=== PATIENT | male | born 1955 | race American Indian/Alaskan Native ===

== ENCOUNTER 2017-08-13 05:05 | Inpatient (IN) | payer BC ==
[2017-08-13 06:16] LABS: Bilirubin,Urine NEG (Negative); Blood,Urine NEG (Negative); Color,Urine Straw (Yellow); Mucus,Urine FEW /HPF; Protein,Urine <15 mg/dL mg/dL (Negative); Urobilinogen,Urine < 2.0 mg/dL (<2.0); WBC,Urine < 1.0 /HPF (0.0-6.0)
[2017-08-13 06:39] LABS: Creatine Kinase MB 1.3 ng/mL (0.0-4.0)
--- NOTE | 2017-08-13 06:39 | Emergency Department Report ---
ED Palpitations HPI - General Chief Complaint: Arrhythmia/Palpitations Stated Complaint: HEART PALPITATIONS Time Seen by Provider: 08/13/17 06:20 Source: EMS Mode of arrival: Stretcher Limitations: No Limitations - History of Present Illness MD Complaint: "skipped beats", palpitations, irregular heart beat -: Sudden, days(s) (1 day ago) Context: occured during rest Associated Symptoms: denies: chest pain, shortness of breath, syncope, near- syncope, nausea/vomiting, anxiety, diaphoresis, cough, parasthesias, feeling of impending doom, muscle cramps Treatments Prior to Arrival: other (oxygen) - Related Data Home Medications Medication Instructions Recorded Confirmed Last Taken Amoxicillin 500 mg PO Q8H 08/13/17 08/13/17 08/12/17 Aspirin [Aspirin EC] 500 mg PO BID PRN 08/13/17 08/13/17 Unknown HYDROcodone/APAP 7.5-325 [[place] 1 each PO Q6HR 08/13/17 08/13/17 08/12/17 7.5/325] Ibuprofen [Motrin] 800 mg PO Q6HR PRN MDD 3,200 mg 08/13/17 08/13/17 08/12/17 Allergies Allergy/AdvReac Type Severity Reaction Status Date / Time No Known Allergies Allergy Unverified 08/13/17 05:47 ED Review of Systems ROS: Stated complaint: HEART PALPITATIONS Other details as noted in HPI Constitutional: denies: chills, fever Eyes: denies: eye pain, eye discharge, vision change ENT: denies: ear pain, throat pain Respiratory: denies: cough, shortness of breath, wheezing Cardiovascular: denies: chest pain, palpitations Endocrine: no symptoms reported Gastrointestinal: denies: abdominal pain, nausea, diarrhea Genitourinary: denies: urgency, dysuria Musculoskeletal: denies: back pain, joint swelling, arthralgia Skin: denies: rash, lesions Neurological: denies: headache, weakness, paresthesias Psychiatric: denies: anxiety, depression Hematological/Lymphatic: denies: easy bleeding, easy bruising ED Past Medical Hx - Past Medical History Previous Medical History?: No - Surgical History Past Surgical History?: No - Family History Family history: hypertension - Social History Smoking Status: Never Smoker Substance Use Type: None - Medications Home Medications: Home Medications Medication Instructions Recorded Confirmed Last Taken Type Amoxicillin 500 mg PO Q8H 08/13/17 08/13/17 08/12/17 History Aspirin [Aspirin EC] 500 mg PO BID PRN 08/13/17 08/13/17 Unknown History HYDROcodone/APAP 7.5-325 [[place] 1 each PO Q6HR 08/13/17 08/13/17 08/12/17 History 7.5/325] Ibuprofen [Motrin] 800 mg PO Q6HR PRN MDD 3,200 mg 08/13/17 08/13/17 08/12/17 History ED Physical Exam - General Limitations: No Limitations General appearance: alert, in no apparent distress - Head Head exam: Present: atraumatic, normocephalic - Eye Eye exam: Present: normal appearance - ENT ENT exam: Present: mucous membranes moist - Neck Neck exam: Present: normal inspection - Respiratory Respiratory exam: Present: normal lung sounds bilaterally. Absent: respiratory distress - Cardiovascular Cardiovascular Exam: Present: regular rate, normal rhythm. Absent: systolic murmur, diastolic murmur, rubs, gallop - GI/Abdominal GI/Abdominal exam: Present: soft, normal bowel sounds - Rectal Rectal exam: Present: deferred - Extremities Exam Extremities exam: Present: normal inspection - Back Exam Back exam: Present: normal inspection - Neurological Exam Neurological exam: Present: alert, oriented X3 - Psychiatric Psychiatric exam: Present: normal affect, normal mood - Skin Skin exam: Present: warm, dry, intact, normal color. Absent: rash ED Course Vital Signs 08/13/17 08/13/17 08/13/17 05:29 05:30 05:41 Temperature 99.2 F Pulse Rate 71 81 81 Respiratory 18 18 22 Rate Blood Pressure 154/107 O2 Sat by Pulse 96 100 Oximetry 08/13/17 08/13/17 08/13/17 06:00 06:30 07:00 Temperature Pulse Rate 63 77 65 Respiratory 14 11 L 13 Rate Blood Pressure 146/98 154/107 152/101 O2 Sat by Pulse 99 99 100 Oximetry 08/13/17 08/13/17 08/13/17 07:30 08:00 08:30 Temperature Pulse Rate 56 L 52 L 90 Respiratory 14 16 15 Rate Blood Pressure 152/101 139/94 139/94 O2 Sat by Pulse 100 99 100 Oximetry 08/13/17 08/13/1708/13/18 09:00 09:30 10:00 Temperature Pulse Rate 53 L 80 63 Respiratory 14 14 16 Rate Blood Pressure 145/103 139/94 143/96 O2 Sat by Pulse 100 100 100 Oximetry 08/13/17 08/13/17 08/13/17 10:30 11:00 11:30 Temperature Pulse Rate 82 70 73 Respiratory 20 13 17 Rate Blood Pressure 143/96 145/87 145/87 O2 Sat by Pulse 95 100 99 Oximetry 08/13/17 08/13/17 12:00 12:30 Temperature Pulse Rate 63 58 L Respiratory 17 14 Rate Blood Pressure 144/98 144/98 O2 Sat by Pulse 98 100 Oximetry - Reevaluation(s) Reevaluation #1: Consult hospitalist for admission. Hospitalist to come see patient and take over care. Discussed plan of care with patient. And patient agreed to plan of care and admission. Discussed all results with patient 08/13/17 08:35 ED Medical Decision Making - Lab Data Result diagrams: 08/13/17 06:51 08/13/17 06:08 - EKG Data -: EKG Interpreted by Ms EKG shows normal: sinus rhythm Rate: normal - EKG Data Interpretation: other (old PVCs patient noted to be in ventricular bigeminy) - Medical Decision Making Patient is a 62-year-old male who presents to emergency room with palpitations found to have an arrhythmia and ventricular bigeminy. Patient admitted to the hospitalist service for further evaluation and treatment. - Differential Diagnosis electrolyte imbalance. Arrhythmia. Critical care attestation.: If time is entered above; I have spent that time in minutes in the direct care of this critically ill patient, excluding procedure time. ED Disposition Clinical Impression: Palpitations, Bigeminy Arrhythmia Qualifiers: Arrhythmia type: unspecified cardiac arrhythmia Qualified Code(s): I49.9 - Cardiac arrhythmia, unspecified Disposition: -09 OP ADMIT IP TO THIS HOSP Is pt being admited?: Yes Does the pt Need Aspirin: No Condition: Serious Time of Disposition: 08:36
[2017-08-13 06:40] LABS: Alanine Aminotransferase 13 units/L (7-56); Albumin 3.7 g/dL (3.9-5); BUN/Creatinine Ratio 16; Blood Urea Nitrogen 14 mg/dL (9-20); Calcium 8.6 mg/dL (8.4-10.2); Hemolysis Index 7
[2017-08-13 07:08] LABS: Hematocrit 40.4 % (35.5-45.6); Hemoglobin 14.1 gm/dl (11.8-15.2); Mean Corpuscular HGB Conc 35 % (32-34); Mean Corpuscular Hemoglobin 29 pg (28-32); Mean Corpuscular Volume 83 fl (84-94); Platelet Count 213 K/mm3 (140-440); Red Blood Count 4.85 M/mm3 (3.65-5.03); Red Cell Distribution Width 13.3 % (13.2-15.2)
--- NOTE | 2017-08-13 09:59 | History and Physical Report ---
History of Present Illness Date of examination: 08/13/17 Chief complaint: Palpitations History of present illness: 62-year-old -[place] male with no significant past medical history presented to the emergency department complaining of palpitations, fluttering of his head, irregular heartbeat. Patient said he has almost faint/dizziness 3 days ago. Patient denied chest pain, shortness of breath. Patient said he went to the dentist and was given Lortab, amoxicillin, and ibuprofen. Patient denies any complaints. REVIEW OF SYSTEMS: GENERAL: no weight change, no fatigue, no fever HEAD: no head ache EYES: no blurry vision, no acute visual loss EARS: no hearing loss, no discharge, no earache NOSE: no stuffiness, no sneezing, no discharge MOUTH, THROAT AND NECK: no bleeding gums, no sore throat, no swollen neck CARDIAC: As stated in the HPI. RESPIRATORY: no shortness of breath, no wheeze, no cough, no sputum, no hemoptysis, no asthma GI: no decreased appetite, no nausea, no vomiting, no dysphagia, no diarrhea, no constipation, no abdominal pain URINARY: no change in frequency, no urgency, no polyuria, no hematuria, no incontinence MUSCULOSKELETAL: no muscle weakness, no pain, no joint stiffness NEUROLOGIC: no loss of sensation/numbness, no tingling, no tremors, no weakness/ paralysis HEMATOLOGIC: no anemia, no easy bruising SKIN: no rashes ENDOCRINE: no heat/cold intolerance, no polyuria, no polydipsia, no thyroid problems, no diabetes PSYCHIATRIC: no anxiety, no depression, no suicidal ideations Past History Past Medical History: No medical history Past Surgical History: Other (left arm surgery) Social history: full code. denies: smoking, alcohol abuse, prescription drug abuse Family history: no significant family history Medications and Allergies Allergies Allergy/AdvReac Type Severity Reaction Status Date / Time No Known Allergies Allergy Unverified 08/13/17 05:47 Exam - Physical Exam Narrative exam: Not in cardiopulmonary distress. The patient appeared well nourished and normally developed. Vital signs as documented. Head exam is unremarkable. No scleral icterus . Neck is without jugular venous distension, thyromegaly, or carotid bruits. Lungs are clear to auscultation. Cardiac exam reveals irregular rate and Rhythm. Abdominal exam reveals normal bowel sounds, no masses, no organomegaly and no aortic enlargement. Extremities are nonedematous and both femoral and pedal pulses are normal. SUPERINTENDENT CIRCUS: Alert and oriented 3. No focal weakness. - Constitutional Vitals: Temp Pulse Resp BP Pulse Ox 99.2 F 90 15 139/94 100 08/13/17 05:41 08/13/17 08:30 08/13/17 08:30 08/13/17 08:30 08/13/17 08:30 Results - Labs CBC & Chem 7: 08/13/17 06:51 08/13/17 06:08 Labs: Laboratory Last Values WBC 7.0 K/mm3 (4.5-11.0) 08/13/17 06:51 RBC 4.85 M/mm3 (3.65-5.03) 08/13/17 06:51 Hgb 14.1 gm/dl (11.8-15.2) 08/13/17 06:51 Hct 40.4 % (35.5-45.6) 08/13/17 06:51 MCV 83 fl (84-94) L 08/13/17 06:51 MCH 29 pg (28-32) 08/13/17 06:51 MCHC 35 % (32-34) H 08/13/17 06:51 RDW 13.3 % (13.2-15.2) 08/13/17 06:51 Plt Count 213 K/mm3 (140-440) 08/13/17 06:51 Sodium 143 mmol/L (137-145) 08/13/17 06:08 Potassium 3.5 mmol/L (3.6-5.0) L 08/13/17 06:08 Chloride 103.7 mmol/L (98-107) 08/13/17 06:08 Carbon Dioxide 30 mmol/L (22-30) 08/13/17 06:08 Anion Gap 13 mmol/L 08/13/17 06:08 BUN 14 mg/dL (9-20) 08/13/17 06:08 Creatinine 0.9 mg/dL (0.8-1.5) 08/13/17 06:08 Estimated GFR > 60 ml/min 08/13/17 06:08 BUN/Creatinine Ratio 16 % 08/13/17 06:08 Glucose 112 mg/dL (75-100) H 08/13/17 06:08 Calcium 8.6 mg/dL (8.4-10.2) 08/13/17 06:08 Magnesium 2.30 mg/dL (1.7-2.3) 08/13/17 06:51 Total Bilirubin 0.20 mg/dL (0.1-1.2) 08/13/17 06:08 AST 16 units/L (5-40) 08/13/17 06:08 ALT 13 units/L (7-56) 08/13/17 06:08 Alkaline Phosphatase 81 units/L (35-129) 08/13/17 06:08 Total Creatine Kinase 152 units/L (55-170) 08/13/17 06:08 CK-MB (CK-2) 1.3 ng/mL (0.0-4.0) 08/13/17 06:08 CK-MB (CK-2) Rel Index 0.8 (0-4) 08/13/17 06:08 Troponin T < 0.010 ng/mL (0.00-0.029) 08/13/17 06:08 Total Protein 6.5 g/dL (6.3-8.2) 08/13/17 06:08 Albumin 3.7 g/dL (3.9-5) L 08/13/17 06:08 Albumin/Globulin Ratio 1.3 % 08/13/17 06:08 Urine Color Straw (Yellow) 08/13/17 06:00 Urine Turbidity Clear (Clear) 08/13/17 06:00 Urine pH 7.0 (5.0-7.0) 08/13/17 06:00 Ur Specific [place] 1.005 (1.003-1.030) 08/13/17 06:00 Urine Protein <15 mg/dl mg/dL (Negative) 08/13/17 06:00 Urine Glucose (UA) Neg mg/dL (Negative) 08/13/17 06:00 Urine Ketones Neg mg/dL (Negative) 08/13/17 06:00 Urine Blood Neg (Negative) 08/13/17 06:00 Urine Nitrite Neg (Negative) 08/13/17 06:00 Urine Bilirubin Neg (Negative) 08/13/17 06:00 Urine Urobilinogen < 2.0 mg/dL (<2.0) 08/13/17 06:00 Ur Leukocyte Esterase Neg (Negative) 08/13/17 06:00 Urine WBC (Auto) < 1.0 /HPF (0.0-6.0) 08/13/17 06:00 Urine RBC (Auto) 1.0 /HPF (0.0-6.0) 08/13/17 06:00 Urine Mucus Few /HPF 08/13/17 06:00 Assessment and Plan Assessment and plan: 62 year old -[place] male presented to the emergency department complaining of palpitations, irregular heart rate, and dizziness Palpitations EKG showed bradycardia, bigeminy and skipped beats Cardiology consulted Plan - Admit to telemetry - ? Possible D/C from the ED if cardiology cleared him. Advance Directives: Yes VTE prophylaxis?: Chemical Plan of care discussed with patient/family: Yes
[2017-08-13] MEDS ORDERED: SODIUM CHLORIDE FLUSH SYRINGE 10 ML IV PRN (10:04)
[2017-08-13] MEDS ORDERED: ZOFRAN IV PRN (10:04)
--- NOTE | 2017-08-13 10:17 | XRay Report ---
AP CHEST: HISTORY: Palpitations AP view of the chest demonstrates a normal mediastinal and cardiac contour with clear lungs and normal bony and soft tissue structures. IMPRESSION: Unremarkable AP chest.
--- NOTE | 2017-08-13 15:34 | Consultation ---
History of Present Illness Consult date: 08/13/17 Requesting physician: DAWSON TABARES Consult reason: other (bigeminy) History of present illness: The pt is a 62 YO male with no known significant past medical history. He is previously unknown to our practice. He presented with c/o progressively worsening palpitations since yesterday. He works for [employer] and was working yesterday when he noted the onset of his palpitations. The palpitations became mores frequent overnight and thus he decided to seek medical attention this AM. He denies any chest pain, SOB, n/v, diaphoresis, dizziness or syncope. He denies any prior cardiac issues. He denies any tobacco use, illicit drug use, or caffeine use. He recently had a tooth extracted and has been taking percocet , amoxicillin and ibuprofen for his tooth. Past History Past Medical History: No medical history Past Surgical History: Other (left elbow surgery many years ago) Social history: full code. denies: smoking, alcohol abuse, prescription drug abuse Family history: no significant family history Medications and Allergies Allergies Allergy/AdvReac Type Severity Reaction Status Date / Time No Known Allergies Allergy Unverified 08/13/17 05:47 Home Medications Medication Instructions Recorded Confirmed Last Taken Type Amoxicillin 500 mg PO Q8H 08/13/17 08/13/17 08/12/17 History Aspirin [Aspirin EC] 500 mg PO BID PRN 08/13/17 08/13/17 Unknown History HYDROcodone/APAP 7.5-325 [[place] 1 each PO Q6HR 08/13/17 08/13/17 08/12/17 History 7.5/325] Ibuprofen [Motrin] 800 mg PO Q6HR PRN MDD 3,200 mg 08/13/17 08/13/17 08/12/17 History Active Meds: Active Medications Acetaminophen (Tylenol) 650 mg PO Q4H PRN PRN Reason: Pain MILD(1-3)/Fever >100.5/CRAVEN Enoxaparin Sodium (Lovenox) 40 mg SUB-Q QDAY ELISABETH Ondansetron HCl (Zofran) 4 mg IV Q8H PRN PRN Reason: Nausea And Vomiting Sodium Chloride (Sodium Chloride Flush Syringe 10 Ml) 10 ml IV BID ELISABETH Sodium Chloride (Sodium Chloride Flush Syringe 10 Ml) 10 ml IV PRN PRN PRN Reason: LINE FLUSH Review of Systems All systems: negative Cardiovascular: palpitations, no chest pain, no orthopnea, no edema, no syncope , no lightheadedness, no shortness of breath, no dyspnea on exertion, no high blood pressure, no leg edema, no decreased exercise tolerance Physical Examination Vital Signs Pulse Resp 71 18 08/13/17 05:29 08/13/17 05:29 General appearance: no acute distress HEENT: Positive: PERRL, Normocephaly, Mucus Membranes Moist Neck: Positive: neck supple, trachea midline Cardiac: Positive: Regular Rate, S1/S2, Other (frequent PVCs) Lungs: Positive: clear to auscultation Neuro: Positive: Grossly Intact, Cranial Nerve 2-12 Intact Abdomen: Positive: Soft. Negative: Tender Skin: Positive: Clear. Negative: Rash, Wound Musculoskeletal: No Fluid Collection, No Pain, Normal Range of Motion Extremities: Absent: edema Results 08/13/17 06:51 08/13/17 06:08 Cardiac Enzymes 08/13/17 Range/Units 06:08 AST 16 (5-40) units/L CK-MB (CK-2) 1.3 (0.0-4.0) ng/mL CBC 08/13/17 Range/Units 06:51 WBC 7.0 (4.5-11.0) K/mm3 RBC 4.85 (3.65-5.03) M/mm3 Hgb 14.1 (11.8-15.2) gm/dl Hct 40.4 (35.5-45.6) % Plt Count 213 (140-440) K/mm3 Comprehensive Metabolic Panel 08/13/17 Range/Units 06:08 Sodium 143 (137-145) mmol/L Potassium 3.5 L (3.6-5.0) mmol/L Chloride 103.7 (98-107) mmol/L Carbon Dioxide 30 (22-30) mmol/L BUN 14 (9-20) mg/dL Creatinine 0.9 (0.8-1.5) mg/dL Glucose 112 H (75-100) mg/dL Calcium 8.6 (8.4-10.2) mg/dL AST 16 (5-40) units/L ALT 13 (7-56) units/L Alkaline Phosphatase 81 (35-129) units/L Total Protein 6.5 (6.3-8.2) g/dL Albumin 3.7 L (3.9-5) g/dL - Imaging and Cardiology Echo: pending EKG: report reviewed, image reviewed EKG interpretations - Telemetry EKG Rhythm: Sinus Rhythm - EKG Sinus rhythms and dysrhythmias: sinus rhythm Ventricular dysrhythmias: ventricular premature com Assessment and Plan Assessment: Frequent PVCs / bigeminy Borderline hypokalemia Plan: Obtain echo. Initiate lopressor. Replete K+. Cont telemetry. Assessment and plan reviewed with pt at bedside. The patient has been seen in conjunction with Dr. Moon who agrees with the assessment and plan of care.
[2017-08-13] MEDS: LOPRESSOR PO SCH ×2 (16:45→21:13)
[2017-08-13] MEDS ORDERED: K-DUR PO ONE (17:00)
[2017-08-13] MEDS: TYLENOL PO PRN (20:56)
[2017-08-13] MEDS: SODIUM CHLORIDE FLUSH SYRINGE 10 ML IV SCH (21:13)
[2017-08-14 07:05] LABS: BUN/Creatinine Ratio 13; Blood Urea Nitrogen 15 mg/dL (9-20); Calcium 8.4 mg/dL (8.4-10.2); Hemolysis Index 6
[2017-08-14] MEDS: TYLENOL PO PRN (09:06)
[2017-08-14 09:18] VITALS: BP 108/71
[2017-08-14] MEDS: LOPRESSOR PO SCH (09:21)
[2017-08-14] MEDS: SODIUM CHLORIDE FLUSH SYRINGE 10 ML IV SCH (09:56)
[2017-08-14] MEDS ORDERED: LOVENOX SUB-Q SCH (10:00)
[2017-08-14] MEDS ORDERED: LOPRESSOR PO SCH (11:36)
[2017-08-14] MEDS ORDERED: MILK OF MAGNESIA PO PRN (11:54)
--- NOTE | 2017-08-14 14:34 | Progress Note ---
Assessment and Plan Assessment: Frequent PVCs / bigeminy - improving Borderline hypokalemia - repleted Plan: Echo reviewed - EF 55-60%, RV mildly dilated, RA mildly dilated, mild TR, mild pulm HTN with RVSP 34mmHg, moderate dilatation of the ascending aorta. Recommend annual echocardiogram for monitoring of ascending aorta dilatation. Decrease lopressor to 12.5mg BID in setting of sinus bradycardia noted overnight. Currently stable cardiac status. Pt may discharge home from cardiology standpoint. Recommend follow up in our office with Dr. Moon within 2 weeks of hospital discharge ([phone]). Pt to call and make his own appt. Assessment and plan reviewed with pt at bedside. The patient has been seen in conjunction with Dr. Negron who agrees with the assessment and plan of care. Subjective Date of service: 08/14/17 Principal diagnosis: PVCs Interval history: Pt resting comfortably in bed, no current cardiac complaints. telemetry reviewed - pt noted to have less frequent PVCs overnight, pt also noted to have sinus bradycardia with HR as low as 30s overnight, BPs stable. Objective Last Vital Signs Temp 97.5 F L 08/14/17 07:59 Pulse 35 L 08/14/17 10:00 Resp 16 08/14/17 10:00 BP 108/71 08/14/17 07:59 Pulse Ox 96 08/14/17 10:00 - Physical Examination General: No Apparent Distress HEENT: Positive: PERRL, Normocephaly, Mucus Membranes Moist Neck: Positive: neck supple, trachea midline Cardiac: Positive: Reg Rate and Rhythm, S1/S2 Lungs: Positive: clear to auscultation Neuro: Positive: Grossly Intact, Cranial Nerve 2-12 Intact Abdomen: Positive: Soft. Negative: Tender Skin: Positive: Clear. Negative: Rash, Wound Musculoskeletal: No Fluid Collection, No Pain, Normal Range of Motion Extremities: Absent: edema - Labs and Meds Comprehensive Metabolic Panel 08/14/17 Range/Units 06:01 Sodium 140 (137-145) mmol/L Potassium 4.2 (3.6-5.0) mmol/L Chloride 100.9 (98-107) mmol/L Carbon Dioxide 29 (22-30) mmol/L BUN 15 (9-20) mg/dL Creatinine 1.2 (0.8-1.5) mg/dL Glucose 88 (75-100) mg/dL Calcium 8.4 (8.4-10.2) mg/dL - Imaging and Cardiology EKG: report reviewed, image reviewed Echo: pending - Telemetry EKG Rhythm: Sinus Rhythm - EKG Sinus rhythms and dysrhythmias: sinus rhythm Ventricular dysrhythmias: ventricular premature com
--- NOTE | 2017-08-14 14:40 | Discharge Summary ---
Providers - Providers Date of Admission: 08/13/17 10:04 Date of discharge: 08/14/17 Attending physician: DAWSON TABARES MD 08/13/17 09:50 Consult to Cardiology [CONS] Urgent Consulting Provider: ROMARIO BANGURA Reason For Exam: Bigemeny/Arryht 08/13/17 10:36 Consult to Physician [CONS] Urgent Comment: Consulting Provider: ROMARIO BANGURA Physician Instructions: Reason For Exam: Bigemeny/arrhythmia Primary care physician: FISH CONSERVATIONIST Hospitalization Reason for admission: cardiac arrhythmia, Bigeminy Condition: Serious Pertinent studies: Echo ejection fraction of 55-60% Hospital course: 62-year-old -[place] male with no significant past medical history presented to the emergency department complaining of palpitations, fluttering of his head, irregular heartbeat. Patient said he has almost faint/dizziness 3 days ago. Patient denied chest pain, shortness of breath. Patient said he went to the dentist and was given Lortab, amoxicillin, and ibuprofen. Patient denies any complaints. Patient was admitted to the floor and cardiology was consulted, echo was done which showed EF of 55-60%. Patient didn't have any symptoms after admission. patient was on the monitor and no arrhytmia was identified. Cardiology recommend to discharge him with lepressor 12.5 mg BID. Patient was hemodynamically stable at the time of discharge. Patient advised to have follow up with [facility] as an O/P. Disposition: DC-01 TO HOME OR SELFCARE Time spent for discharge: 31 minutes - Discharge Diagnoses (1) Arrhythmia Status: Acute Qualifiers: Arrhythmia type: unspecified cardiac arrhythmia Qualified Code(s): I49.9 - Cardiac arrhythmia, unspecified (2) Bigeminy Status: Acute (3) Palpitations Status: Acute Core Measure Documentation - Palliative Care Palliative Care/ Comfort Measures: Not Applicable - Core Measures Any of the following diagnoses?: none Exam - Physical Exam Narrative exam: Not in cardiopulmonary distress. The patient appeared well nourished and normally developed. Vital signs as documented. Head exam is unremarkable. No scleral icterus . Neck is without jugular venous distension, thyromegaly, or carotid bruits. Lungs are clear to auscultation. Cardiac exam reveals irregular rate and Rhythm. Abdominal exam reveals normal bowel sounds, no masses, no organomegaly and no aortic enlargement. Extremities are nonedematous and both femoral and pedal pulses are normal. RENAL DIETITIAN: Alert and oriented 3. No focal weakness. - Constitutional Vitals: Temp Pulse Resp BP Pulse Ox 97.5 F L 35 L 16 108/71 96 08/14/17 07:59 08/14/17 10:00 08/14/17 10:00 08/14/17 07:59 08/14/17 10:00 Plan Activity: no restrictions Weight Bearing Status: Full Weight Bearing Diet: low cholesterol, low salt Follow up with: PRIMARY CARE, [Primary Care Provider] - 7 Days PREETHI POLLOCK MD [Staff Physician] - 14 Days Prescriptions: Metoprolol [Lopressor TAB] 12.5 mg PO BID #60 tablet
== END 2017-08-14 16:52 | disposition home or self-care (01) | DRG 310 ==
LOC: ED 05:05 → 4A 10:04
PROVIDERS: ADMIT Internal Medicine; ATTEND Internal Medicine
DX: I49.3 Ventricular premature depolarization (principal); R42 Dizziness and giddiness; I49.9 Cardiac arrhythmia, unspecified; Z79.82 Long term (current) use of aspirin; Z82.49 Family history of ischemic heart disease and other diseases of the circulatory system; I27.20 Pulmonary hypertension, unspecified
CPT/HCPCS: 36415; 71045; 80048; 80053; 81001; 82550; 82553; 83735; 84443; 84484; 85027; 93005; 93010; 93306; J1650; J2405

== ENCOUNTER 2017-08-15 21:47 | Inpatient (IN) | payer BC ==
[2017-08-15] MEDS ORDERED: ASPIRIN PO ONE (21:57)
[2017-08-15] MEDS ORDERED: CORDARONE 150 MG in D5W 100 ML IV ONE (22:37)
[2017-08-15] MEDS ORDERED: CORDARONE IV ONE (22:38)
--- NOTE | 2017-08-15 22:47 | Emergency Department Report ---
ED Palpitations HPI - General Chief Complaint: Arrhythmia/Palpitations Stated Complaint: CHEST PAIN Time Seen by Provider: 08/15/17 22:34 Source: patient, old records reviewed Mode of arrival: Ambulatory Limitations: No Limitations - History of Present Illness Initial Comments: 62-year-old male with a past medical history of recently diagnosed bigeminy presents for complaints of palpitations, lightheadedness, generalized weakness that restarted today. Patient was admitted here August 13 until the for similar symptoms. EKG revealed bigeminy. Patient had echocardiogram showing an normal EF and was started on Lopressor 12.5 mg twice a day and had sinus bradycardia and bigeminy during admission. Patient did not receive a stress test. Patient took his first dose of prescribed Lopressor 12.5 mg this morning. Initial EKG in the ED shows episodes of nonsustained V. tach - Related Data Home Medications Medication Instructions Recorded Confirmed Last Taken Amoxicillin 500 mg PO Q8H 08/13/17 08/13/17 08/12/17 Aspirin [Aspirin EC] 500 mg PO BID PRN 08/13/17 08/13/17 Unknown HYDROcodone/APAP 7.5-325 [[place] 1 each PO Q6HR 08/13/17 08/13/17 08/12/17 7.5-325 mg TAB] Ibuprofen [Motrin 800 MG tab] 800 mg PO Q6HR PRN MDD 3,200 mg 08/13/17 08/13/17 08/12/17 Previous Rx's Medication Instructions Recorded Last Taken Type Metoprolol [Lopressor TAB] 12.5 mg PO BID #60 tablet 08/14/17 Unknown Rx Allergies Allergy/AdvReac Type Severity Reaction Status Date / Time No Known Allergies Allergy Verified 08/15/17 21:50 ED Review of Systems ROS: Stated complaint: CHEST PAIN Other details as noted in HPI Comment: All other systems reviewed and negative ED Past Medical Hx - Past Medical History Hx Congestive Heart Failure: No Hx Diabetes: No Hx Asthma: No Hx COPD: No - Surgical History Past Surgical History?: No - Social History Smoking Status: Never Smoker Substance Use Type: None - Medications Home Medications: Home Medications Medication Instructions Recorded Confirmed Last Taken Type Amoxicillin 500 mg PO Q8H 08/13/17 08/13/17 08/12/17 History Aspirin [Aspirin EC] 500 mg PO BID PRN 08/13/17 08/13/17 Unknown History HYDROcodone/APAP 7.5-325 [[place] 1 each PO Q6HR 08/13/17 08/13/17 08/12/17 History 7.5-325 mg TAB] Ibuprofen [Motrin 800 MG tab] 800 mg PO Q6HR PRN MDD 3,200 mg 08/13/17 08/13/17 08/12/17 History Metoprolol [Lopressor TAB] 12.5 mg PO BID #60 tablet 08/14/17 Unknown Rx ED Physical Exam - General Limitations: No Limitations - Other Other exam information: General: No limitations, patient is alert in no acute distress Head exam: Atraumatic, normocephalic Eyes exam: Normal appearance, pupils equal reactive to light, extraocular movements intact ENT: Moist mucous membrane, normal oropharynx Neck exam: Normal inspection, full range of motion, no meningismus nontender Respiratory exam: Clear to auscultation bilateral, no wheezes, rales, crackles Cardiovascular: Intermittent palpitations and irregular Abdomen: Soft, nondistended, and nontender, with normal bowel sounds, no rebound, or guarding Extremity: Full range of motion normal inspection no deformity, no calf tenderness or edema Back: Normal Inspection, full range of motion, no tenderness Neurologic: Alert, oriented x3, cranial nerves intact, no motor or sensory deficit Psychiatric: normal affect, normal mood Skin: Warm, dry, intact ED Course Vital Signs 08/15/17 21:50 Temperature 97.5 F L Pulse Rate 43 L Respiratory 16 Rate Blood Pressure 112/95 O2 Sat by Pulse 98 Oximetry - Reevaluation(s) Reevaluation #1: 08/15/17 23:08 Initial amiodarone bolus seemed to help nonsustained V. tach episodes and patient is now consistently in bigeminy. Amiodarone drip in progress - Consultations Consultation #1: 08/15/17 22:[address] 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 Recommends amiodarone bolus followed by drip and Lexiscan in the morning ED Medical Decision Making - Lab Data Result diagrams: 08/15/17 10:33 08/15/17 10:33 Lab Results 08/15/17 08/15/17 08/15/17 Range/Units 10:33 10:33 10:33 WBC 8.4 (4.5-11.0) K/mm3 RBC 4.72 (3.65-5.03) M/mm3 Hgb 13.5 (11.8-15.2) gm/dl Hct 39.9 (35.5-45.6) % MCV 85 (84-94) fl MCH 29 (28-32) pg MCHC 34 (32-34) % RDW 13.7 (13.2-15.2) % Plt Count 220 (140-440) K/mm3 Lymph % (Auto) 44.6 H (13.4-35.0) % [place] % (Auto) 10.0 H (0.0-7.3) % Eos % (Auto) 4.8 H (0.0-4.3) % Baso % (Auto) 0.8 (0.0-1.8) % Lymph # 3.7 (1.2-5.4) K/mm3 [place] # 0.9 H (0.0-0.8) K/mm3 Eos # 0.4 (0.0-0.4) K/mm3 Baso # 0.1 (0.0-0.1) K/mm3 Add Manual Diff Complete Seg Neutrophils % 39.4 L (40.0-70.0) % Seg Neutrophils # 3.3 (1.8-7.7) K/mm3 PT 13.2 (12.2-14.9) Sec. INR 0.95 (0.87-1.13) Sodium 139 (137-145) mmol/L Potassium 4.1 (3.6-5.0) mmol/L Chloride 101.0 (98-107) mmol/L Carbon Dioxide 30 (22-30) mmol/L Anion Gap 12 mmol/L BUN 15 (9-20) mg/dL Creatinine 1.3 (0.8-1.5) mg/dL Estimated GFR > 60 ml/min BUN/Creatinine Ratio 12 % Glucose 97 (75-100) mg/dL Calcium 8.5 (8.4-10.2) mg/dL Magnesium (1.7-2.3) mg/dL Troponin T < 0.010 (0.00-0.029) ng/mL 08/15/17 Range/Units 10:33 WBC (4.5-11.0) K/mm3 RBC (3.65-5.03) M/mm3 Hgb (11.8-15.2) gm/dl Hct (35.5-45.6) % MCV (84-94) fl MCH (28-32) pg MCHC (32-34) % RDW (13.2-15.2) % Plt Count (140-440) K/mm3 Lymph % (Auto) (13.4-35.0) % [place] % (Auto) (0.0-7.3) % Eos % (Auto) (0.0-4.3) % Baso % (Auto) (0.0-1.8) % Lymph # (1.2-5.4) K/mm3 [place] # (0.0-0.8) K/mm3 Eos # (0.0-0.4) K/mm3 Baso # (0.0-0.1) K/mm3 Add Manual Diff Seg Neutrophils % (40.0-70.0) % Seg Neutrophils # (1.8-7.7) K/mm3 PT (12.2-14.9) Sec. INR (0.87-1.13) Sodium (137-145) mmol/L Potassium (3.6-5.0) mmol/L Chloride (98-107) mmol/L Carbon Dioxide (22-30) mmol/L Anion Gap mmol/L BUN (9-20) mg/dL Creatinine (0.8-1.5) mg/dL Estimated GFR ml/min BUN/Creatinine Ratio % Glucose (75-100) mg/dL Calcium (8.4-10.2) mg/dL Magnesium 2.30 (1.7-2.3) mg/dL Troponin T (0.00-0.029) ng/mL - EKG Data -: EKG Interpreted by Or EKG shows normal: sinus rhythm (nonsustained vtach episodes), axis (qrs 23), intervals (qtc 335), QRS complexes (qrsd 90), ST-T waves (no stemi/t inv) - EKG Data When compared to previous EKG there are: changes noted (bigemeny peviously) - Medical Decision Making Nonsustained V. tach, multiple recurrent episodes prior to amiodarone Improved with amiodarone bolus and drip and progress Cardiac enzymes and electrolytes unremarkable Underlying bigeminy persists Cardiology has been consulted Recommended Lexiscan stress test in the a.m. - Differential Diagnosis arrhythmia, electrolyte abnormality, IN Critical Care Time: No Critical care attestation.: If time is entered above; I have spent that time in minutes in the direct care of this critically ill patient, excluding procedure time. ED Disposition Clinical Impression: NSVT (nonsustained ventricular tachycardia), Bigeminy, Palpitations Disposition: OP ADMIT IP TO THIS HOSP Is pt being admited?: Yes Condition: Stable Referrals: PRIMARY CARE, [Primary Care Provider] - 3-5 Days Time of Disposition: 23:11 (Dr Garcia/hosp)
[2017-08-15 22:55] LABS: INR 0.95 (0.87-1.13)
[2017-08-15] MEDS: CORDARONE 900 MG in D5W 482 ML IV SCH (22:58)
[2017-08-15 22:59] LABS: BUN/Creatinine Ratio 12; Blood Urea Nitrogen 15 mg/dL (9-20); Calcium 8.5 mg/dL (8.4-10.2); Hemolysis Index 9
[2017-08-15 23:04] LABS: Hematocrit 39.9 % (35.5-45.6); Hemoglobin 13.5 gm/dl (11.8-15.2); Lymphocytes % (Auto) 44.6 % (13.4-35.0); Mean Corpuscular HGB Conc 34 % (32-34); Mean Corpuscular Hemoglobin 29 pg (28-32); Mean Corpuscular Volume 85 fl (84-94); Platelet Count 220 K/mm3 (140-440); Red Blood Count 4.72 M/mm3 (3.65-5.03); Red Cell Distribution Width 13.7 % (13.2-15.2)
[2017-08-15 23:05] LABS: Basophils # (Auto) 0.1 K/mm3 (0.0-0.1); Basophils % (Auto) 0.8 % (0.0-1.8); Eosinophils # (Auto) 0.4 K/mm3 (0.0-0.4); Eosinophils % (Auto) 4.8 % (0.0-4.3); Lymphocytes # (Auto) 3.7 K/mm3 (1.2-5.4); Monocytes # (Auto) 0.9 K/mm3 (0.0-0.8)
[2017-08-15] MEDS ORDERED: SODIUM CHLORIDE FLUSH SYRINGE 10 ML IV PRN (23:31)
[2017-08-15] MEDS ORDERED: ZOFRAN IV PRN (23:31)
--- NOTE | 2017-08-15 23:37 | History and Physical Report ---
History of Present Illness Date of examination: 08/15/17 History of present illness: 62-year-old man with no medical history was admitted for evaluation of his bigeminy and discharged yesterday. Patient was instructed to take Lopressor 12.5 twice a day. He took the morning dose, she did not take the evening dose because his pulse was between 47 to low 50s. Stated that this evening he started experiencing fluttering and skipped beats A's chest. Patient had episodes of nonsustained V. tach in the emergency room and was started on amiodarone drip Review of systems Constitutional: no weight loss, chills Ears, eyes, nose, mouth and throat: no nasal congestion, no nasal discharge, no sinus pressure, no vision change, no red eye. Neck: No neck pain or rigidity. Cardiovascular: no chest pain Respiratory: No cough, shortness of breath Gastrointestinal: no abdominal pain, hematochezia Genitourinary : no dysuria, frequency , no hematuria Musculoskeletal: no joint swelling or muscle ache Integumentary: no rash, no pruritis Neurological: no parathesias, no numbness, no focal weakness Endocrine: no cold or heat intolerance, no polyuria or polydipsia Hematologic/Lymphatic: no easy bruising, no easy bleeding, no gland swelling Allergic/Immunologic: no urticaria, no angioedema. PAST MEDICAL HISTORY: none PAST SURGICAL HISTORY: Left arm SOCIAL HISTORY: Denies alcohol, tobacco, drugs FAMILY HISTORY: Hypertension Medications and Allergies Allergies Allergy/AdvReac Type Severity Reaction Status Date / Time No Known Allergies Allergy Verified 08/15/17 21:50 Home Medications Medication Instructions Recorded Confirmed Last Taken Type Amoxicillin 500 mg PO Q8H 08/13/17 08/13/17 08/12/17 History Aspirin [Aspirin EC] 500 mg PO BID PRN 08/13/17 08/13/17 Unknown History HYDROcodone/APAP 7.5-325 [[place] 1 each PO Q6HR 08/13/17 08/13/17 08/12/17 History 7.5-325 mg TAB] Ibuprofen [Motrin 800 MG tab] 800 mg PO Q6HR PRN MDD 3,200 mg 08/13/17 08/13/17 08/12/17 History Metoprolol [Lopressor TAB] 12.5 mg PO BID #60 tablet 08/14/17 Unknown Rx Active Meds: Active Medications Acetaminophen (Tylenol) 650 mg PO Q4H PRN PRN Reason: Pain MILD(1-3)/Fever >100.5/CRAVEN Enoxaparin Sodium (Lovenox) 30 mg SUB-Q QDAY ELISABETH Amiodarone HCl 900 mg/ (Dextrose) 500 mls @ 33.33 mls/hr IV DIRECT ELISABETH; Protocol Last Admin: 08/15/17 22:58 Dose: 1 mg/min, 33.33 mls/hr Ondansetron HCl (Zofran) 4 mg IV Q8H PRN PRN Reason: Nausea And Vomiting Oxycodone/Acetaminophen (Percocet 5/325) 1 tab PO Q6H PRN PRN Reason: Pain, Moderate (4-6) Sodium Chloride (Sodium Chloride Flush Syringe 10 Ml) 10 ml IV BID ELISABETH Sodium Chloride (Sodium Chloride Flush Syringe 10 Ml) 10 ml IV PRN PRN PRN Reason: LINE FLUSH Exam - Physical Exam Narrative exam: Gen. appearance: Patient lying in bed, no apparent distress HEENT: Normocephalic, atraumatic, pupils equally round and reactive to light, extraocular movement intact, and no sclericterus,. No JVD or thyromegaly or nodule,neck supple, no carotid bruit ,mucous membranes moist, no exudate or erythema Heart: S1, S2, regular rate and rhythm Lungs: Clear to auscultation bilaterally, breathing comfortable Abdomen: Positive bowel sounds, nontender, nondistended, no organomegaly Extremity: No edema, cyanosis, clubbing Skin: No rash, nodules, warm, dry Neuro: Oriented 3, cranial nerves II-12 intact, speech is fluent, motor and sensory intact - Constitutional Vitals: Temp Pulse Resp BP Pulse Ox 97.5 F L 43 L 16 112/95 98 08/15/17 21:50 08/15/17 21:50 08/15/17 21:50 08/15/17 21:50 08/15/17 21:50 Results - Labs CBC & Chem 7: 08/15/17 10:33 08/15/17 10:33 Labs: Abnormal lab results 08/15/17 Range/Units 10:33 Lymph % (Auto) 44.6 H (13.4-35.0) % [place] % (Auto) 10.0 H (0.0-7.3) % Eos % (Auto) 4.8 H (0.0-4.3) % [place] # 0.9 H (0.0-0.8) K/mm3 Seg Neutrophils % 39.4 L (40.0-70.0) % - Imaging and Cardiology EKG: image reviewed Assessment and Plan Assessment Nonsustained V. tach Bigeminy Plan Continue amiodarone drip Check cardiac enzymes, stress test consult cardiology, critical care DVT prophylaxis
[2017-08-16 00:10] LABS: Creatine Kinase MB < 1.0 ng/mL (0.0-4.0)
[2017-08-16] MEDS ORDERED: CORDARONE 150 MG in D5W 100 ML IV ONE (00:26)
[2017-08-16] MEDS ORDERED: CORDARONE IV ONE (00:26)
[2017-08-16 04:18] LABS: BUN/Creatinine Ratio 13; Blood Urea Nitrogen 15 mg/dL (9-20); Calcium 8.4 mg/dL (8.4-10.2); Hemolysis Index 11
[2017-08-16 07:23] LABS: Basophils % (Auto) 0.6 % (0.0-1.8); Eosinophils % (Auto) 3.9 % (0.0-4.3); Hematocrit 38.8 % (35.5-45.6); Hemoglobin 12.9 gm/dl (11.8-15.2); Lymphocytes % (Auto) 38.6 % (13.4-35.0); Mean Corpuscular HGB Conc 33 % (32-34); Mean Corpuscular Hemoglobin 28 pg (28-32); Mean Corpuscular Volume 85 fl (84-94); Mean Platelet Volume 8.3 fl (6-12); Monocytes % (Auto) 10.6 % (0.0-7.3); Platelet Count 202 K/mm3 (140-440); Red Blood Count 4.57 M/mm3 (3.65-5.03); Red Cell Distribution Width 13.6 % (13.2-15.2)
[2017-08-16 07:24] LABS: Eosinophils # (Auto) 0.3 K/mm3 (0.0-0.4); Lymphocytes # (Auto) 3.1 K/mm3 (1.2-5.4); Monocytes # (Auto) 0.9 K/mm3 (0.0-0.8)
[2017-08-16 07:40] LABS: Creatine Kinase MB < 1.0 ng/mL (0.0-4.0)
[2017-08-16] MEDS ORDERED: LEXISCAN IV ONE ×2 (08:24→08:28)
[2017-08-16] MEDS: SODIUM CHLORIDE FLUSH SYRINGE 10 ML IV SCH ×2 (09:53→22:02)
[2017-08-16] MEDS: LOVENOX SUB-Q SCH (09:53)
[2017-08-16] MEDS ORDERED: LOVENOX SUB-Q SCH (10:00)
--- NOTE | 2017-08-16 13:27 | Consultation ---
History of Present Illness Consult date: 08/16/17 Requesting physician: OZZIE TREVIZO Consult reason: arrhythmia History of present illness: Assessment last week with palpitations and was noted to have frequent PVCs on the monitor. Echocardiogram showed an ejection fraction of 55-60 percent. He was subsequently discharged on metoprolol 12.5 mg twice a day. He took the first dose of metoprolol yesterday morning., He started experiencing palpitations with some lightheadedness. He presented back to the emergency department. In the ER, he was noted to have frequent and often long runs of nonsustained ventricular tachycardia. As such, he was placed on IV amiodarone drip. He denies chest pain. Past History Past Medical History: No medical history Past Surgical History: Other (left elbow surgery) Social history: (has 5 children). denies: smoking, alcohol abuse Family history: no significant family history Medications and Allergies Allergies Allergy/AdvReac Type Severity Reaction Status Date / Time No Known Allergies Allergy Verified 08/15/17 21:50 Home Medications Medication Instructions Recorded Confirmed Last Taken Type Amoxicillin 500 mg PO Q8H 08/13/17 08/13/17 08/12/17 History Aspirin [Aspirin EC] 500 mg PO BID PRN 08/13/17 08/13/17 Unknown History HYDROcodone/APAP 7.5-325 [[place] 1 each PO Q6HR 08/13/17 08/13/17 08/12/17 History 7.5-325 mg TAB] Ibuprofen [Motrin 800 MG tab] 800 mg PO Q6HR PRN MDD 3,200 mg 08/13/17 08/13/17 08/12/17 History Metoprolol [Lopressor TAB] 12.5 mg PO BID #60 tablet 08/14/17 Unknown Rx Active Meds: Active Medications Acetaminophen (Tylenol) 650 mg PO Q4H PRN PRN Reason: Pain MILD(1-3)/Fever >100.5/CRAVEN Amlodipine Besylate (Norvasc) 10 mg PO QDAY ELISABETH Enoxaparin Sodium (Lovenox) 40 mg SUB-Q QDAY@1000 ELISABETH Last Admin: 08/16/17 09:53 Dose: 40 mg Amiodarone HCl 900 mg/ (Dextrose) 500 mls @ 33.33 mls/hr IV DIRECT ELISABETH; Protocol Last Titration: 08/16/17 04:47 Dose: 0.5 mg/min, 16.66 mls/hr Sodium Chloride (Nacl 0.9% 500 Ml) 500 mls @ 50 mls/hr IV DIRECT ELISABETH Stop: 08/16/17 23:59 Metoprolol Tartrate (Lopressor) 25 mg PO BID [facility] Ondansetron HCl (Zofran) 4 mg IV Q8H PRN PRN Reason: Nausea And Vomiting Oxycodone/Acetaminophen (Percocet 5/325) 1 tab PO Q6H PRN PRN Reason: Pain, Moderate (4-6) Sodium Chloride (Sodium Chloride Flush Syringe 10 Ml) 10 ml IV BID [facility] Last Admin: 08/16/17 09:53 Dose: 10 ml Sodium Chloride (Sodium Chloride Flush Syringe 10 Ml) 10 ml IV PRN PRN PRN Reason: LINE FLUSH Review of Systems Constitutional: no fever, no chills Ears, nose, mouth and throat: no ear pain, no ear discharge, no sore throat Cardiovascular: palpitations, lightheadedness, no chest pain, no shortness of breath Respiratory: no cough, no hemoptysis, no shortness of breath Gastrointestinal: no nausea, no vomiting, no diarrhea, no constipation Genitourinary Male: no dysuria, no urinary frequency Rectal: no pain, no bleeding Musculoskeletal: no neck stiffness, no neck pain, no myalgias Integumentary: no rash, no pruritis Neurological: no weakness, no parathesias, no headaches Endocrine: no cold intolerance, no heat intolerance Hematologic/Lymphatic: no easy bruising, no easy bleeding Allergic/Immunologic: no urticaria, no wheezing Physical Examination Vital Signs Last Vital Signs Temp 98 F 08/16/17 11:19 Pulse 59 L 08/16/17 11:19 Resp 15 08/16/17 11:19 BP 152/108 08/16/17 11:19 Pulse Ox 98 08/16/17 11:19 General appearance: no acute distress HEENT: Positive: EOMI, Normocephaly, Mucus Membranes Moist Neck: Positive: neck supple, trachea midline Cardiac: Positive: Reg Rate and Rhythm, S1/S2 Lungs: Positive: clear to auscultation Neuro: Positive: Grossly Intact Abdomen: Positive: Soft, Active Bowel Sounds. Negative: Tender Skin: Positive: Clear. Negative: Rash Musculoskeletal: Normal Range of Motion Extremities: Present: normal. Absent: edema Results 08/16/17 06:49 08/16/17 03:53 Cardiac Enzymes 08/15/17 08/16/17 Range/Units 10:33 06:49 CK-MB (CK-2) < 1.0 < 1.0 (0.0-4.0) ng/mL Coagulation 08/15/17 Range/Units 10:33 PT 13.2 (12.2-14.9) Sec. INR 0.95 (0.87-1.13) CBC 08/15/17 08/16/17 Range/Units 10:33 06:49 WBC 8.4 8.1 (4.5-11.0) K/mm3 RBC 4.72 4.57 (3.65-5.03) M/mm3 Hgb 13.5 12.9 (11.8-15.2) gm/dl Hct 39.9 38.8 (35.5-45.6) % Plt Count 220 202 (140-440) K/mm3 Lymph # 3.7 3.1 (1.2-5.4) K/mm3 [place] # 0.9 H 0.9 H (0.0-0.8) K/mm3 Eos # 0.4 0.3 (0.0-0.4) K/mm3 Baso # 0.1 0.0 (0.0-0.1) K/mm3 Comprehensive Metabolic Panel 08/15/17 08/16/17 Range/Units 10:33 03:53 Sodium 139 140 (137-145) mmol/L Potassium 4.1 4.4 (3.6-5.0) mmol/L Chloride 101.0 100.6 (98-107) mmol/L Carbon Dioxide 30 29 (22-30) mmol/L BUN 15 15 (9-20) mg/dL Creatinine 1.3 1.2 (0.8-1.5) mg/dL Glucose 97 76 (75-100) mg/dL Calcium 8.5 8.4 (8.4-10.2) mg/dL - Imaging and Cardiology EKG: image reviewed EKG interpretations - Telemetry EKG Rhythm: Sinus Rhythm - EKG Sinus rhythms and dysrhythmias: sinus rhythm Ventricular dysrhythmias: ventricular premature com Assessment and Plan Continue IV amiodarone drip. Schedule coronary angiography in a.m. Initiate beta alyssa therapy as BP permits. Initiate other antihypertensive regimen. EP consult will be arranged tomorrow. - Patient Problems (1) NSVT (nonsustained ventricular tachycardia) Current Visit: Yes Status: Acute (2) Hypertension Current Visit: Yes Status: Acute (3) Palpitations Current Visit: Yes Status: Acute
[2017-08-16] MEDS ORDERED: NACL 0.9% 500 ML 500 ML IV SCH (14:00)
[2017-08-16] MEDS: NORVASC PO SCH (14:34)
--- NOTE | 2017-08-16 16:33 | Progress Note ---
Assessment and Plan Assessment and plan: 62-year-old -[place] male was discharged from hospital 2 days ago after he was admitted with arrhythmia, frequent PVCs and bigeminy. Patient had echo done and showed ejection fraction of 50-60%. Patient was discharged with metoprolol and after he took some morning dose patient said he felt palpitations and he presented to the emergency department. In the emergency department he has multiple nonsustained V. tachs, occasional bradycardia cardiology was consulted and patient is on amiodarone drip, admitted to telemetry and will have cardiac cath tomorrow morning. Patient had hypertension and is on amlodipine. Patient is on Lovenox for DVT prophylaxis. Disposition per cardiology History Interval history: Patient was seen and evaluated this morning, and did have any complaints at the time of examination Hospitalist Physical - Physical exam Narrative exam: Not in cardiopulmonary distress. The patient appeared well nourished and normally developed. Vital signs as documented. Head exam is unremarkable. No scleral icterus . Neck is without jugular venous distension, thyromegaly, or carotid bruits. Lungs are clear to auscultation. Cardiac exam reveals regular rate and Rhythm. First and second heart sounds normal. No murmurs, rubs or gallops. Abdominal exam reveals normal bowel sounds, no masses, no organomegaly and no aortic enlargement. Extremities are nonedematous and both femoral and pedal pulses are normal. PEDIATRIC CRITICAL CARE NURSE: Alert and oriented 3. No focal weakness. - Constitutional Vitals: Temp Pulse Resp BP Pulse Ox 98 F 72 15 157/111 98 08/16/17 11:19 08/16/17 14:34 08/16/17 11:19 08/16/17 14:34 08/16/17 11:19 General appearance: Present: no acute distress Results - Labs CBC & Chem 7: 08/16/17 06:49 08/16/17 03:53 Labs: Laboratory Last Values WBC 8.1 K/mm3 (4.5-11.0) 08/16/17 06:49 RBC 4.57 M/mm3 (3.65-5.03) 08/16/17 06:49 Hgb 12.9 gm/dl (11.8-15.2) 08/16/17 06:49 Hct 38.8 % (35.5-45.6) 08/16/17 06:49 MCV 85 fl (84-94) 08/16/17 06:49 MCH 28 pg (28-32) 08/16/17 06:49 MCHC 33 % (32-34) 08/16/17 06:49 RDW 13.6 % (13.2-15.2) 08/16/17 06:49 Plt Count 202 K/mm3 (140-440) 08/16/17 06:49 Lymph % (Auto) 38.6 % (13.4-35.0) H 08/16/17 06:49 [place] % (Auto) 10.6 % (0.0-7.3) H 08/16/17 06:49 Eos % (Auto) 3.9 % (0.0-4.3) 08/16/17 06:49 Baso % (Auto) 0.6 % (0.0-1.8) 08/16/17 06:49 Lymph # 3.1 K/mm3 (1.2-5.4) 08/16/17 06:49 [place] # 0.9 K/mm3 (0.0-0.8) H 08/16/17 06:49 Eos # 0.3 K/mm3 (0.0-0.4) 08/16/17 06:49 Baso # 0.0 K/mm3 (0.0-0.1) 08/16/17 06:49 Add Manual Diff Complete 08/15/17 10:33 Seg Neutrophils % 46.3 % (40.0-70.0) 08/16/17 06:49 Seg Neutrophils # 3.7 K/mm3 (1.8-7.7) 08/16/17 06:49 PT 13.2 Sec. (12.2-14.9) 08/15/17 10:33 INR 0.95 (0.87-1.13) 08/15/17 10:33 Sodium 140 mmol/L (137-145) 08/16/17 03:53 Potassium 4.4 mmol/L (3.6-5.0) 08/16/17 03:53 Chloride 100.6 mmol/L (98-107) 08/16/17 03:53 Carbon Dioxide 29 mmol/L (22-30) 08/16/17 03:53 Anion Gap 15 mmol/L 08/16/17 03:53 BUN 15 mg/dL (9-20) 08/16/17 03:53 Creatinine 1.2 mg/dL (0.8-1.5) 08/16/17 03:53 Estimated GFR > 60 ml/min 08/16/17 03:53 BUN/Creatinine Ratio 13 % 08/16/17 03:53 Glucose 76 mg/dL (75-100) 08/16/17 03:53 Calcium 8.4 mg/dL (8.4-10.2) 08/16/17 03:53 Magnesium 2.30 mg/dL (1.7-2.3) 08/15/17 10:33 Total Creatine Kinase 77 units/L (55-170) 08/16/17 06:49 CK-MB (CK-2) < 1.0 ng/mL (0.0-4.0) 08/16/17 06:49 CK-MB (CK-2) Rel Index 1.2 (0-4) 08/16/17 06:49 Troponin T < 0.010 ng/mL (0.00-0.029) 08/16/17 06:49
[2017-08-16] MEDS: CORDARONE 900 MG in D5W 482 ML IV SCH (18:27)
[2017-08-16] MEDS: PERCOCET 5/325 PO PRN (22:00)
[2017-08-16] MEDS ORDERED: LOPRESSOR PO SCH (22:00)
[2017-08-16] MEDS ORDERED: CORDARONE PO SCH (22:00)
[2017-08-17] MEDS ORDERED: HEPARIN/NS 5000 UNIT/500ML(CATH LAB) 1,000 ML IR ONE (11:41)
[2017-08-17] MEDS ORDERED: VERSED ONE (11:41)
[2017-08-17] MEDS ORDERED: HEPARIN 10,000 UNITS/10 ML ONE (11:41)
[2017-08-17] MEDS ORDERED: CALAN ONE (11:42)
[2017-08-17] MEDS ORDERED: XYLOCAINE 2% INFILTRATI ONE (11:42)
[2017-08-17] MEDS ORDERED: SUBLIMAZE ONE (11:42)
[2017-08-17] MEDS ORDERED: NITROGLYCERIN SYRINGE 3 ML ONE (11:45)
[2017-08-17] MEDS ORDERED: NACL 0.9% 500 ML 500 ML ONE (11:49)
--- NOTE | 2017-08-17 12:19 | Event Note ---
Date: 08/17/[address] [facility] this am via [facility]: 1. Normal cors 2. Normal LV fxn 3. No as 4. Nl lvedp rec EP consult Stable cv status. No sxs. f/u with us in the office.
--- NOTE | 2017-08-17 12:27 | Progress Note ---
<TREY PIERREELLE - Last Filed: 08/17/17 12:31> Assessment and Plan Assessment: NSVT HTN Normal coronaries Plan: S/p [facility] this AM which revealed normal coronaries, normal LV function. D/c amio gtt. Cont lopressor 12.5mg BID and amlodipine. Assessment and plan reviewed with pt at bedside. The patient has been seen in conjunction with Dr. Garcia who agrees with the assessment and plan of care. Subjective Date of service: 08/17/17 Principal diagnosis: NSVT Interval history: pt seen s/p [facility]. no current cardiac complaints. tele reviewed - pt continued to have bouts of NSVT overnight, longest run was 23 beats. Objective Last Vital Signs Temp 98.0 F 08/17/17 03:35 Pulse 55 L 08/17/17 03:35 Resp 18 08/17/17 03:35 BP 151/96 08/17/17 03:35 Pulse Ox 98 08/17/17 10:00 - Physical Examination General: No Apparent Distress HEENT: Positive: EOMI, Normocephaly, Mucus Membranes Moist Neck: Positive: neck supple, trachea midline Cardiac: Positive: Reg Rate and Rhythm, S1/S2 Lungs: Positive: clear to auscultation Neuro: Positive: Grossly Intact Abdomen: Positive: Soft, Active Bowel Sounds. Negative: Tender Skin: Positive: Clear. Negative: Rash Musculoskeletal: Normal Range of Motion Extremities: Present: normal. Absent: edema - Labs and Meds Coagulation 08/17/17 Range/Units 05:43 APTT 28.9 (24.2-36.6) Sec. - Imaging and Cardiology EKG: image reviewed Echo: report reviewed (EF 55-60%, RV mildly dilated, RA mildly dilated, mild TR , mild pulm HTN with RVSP 34mmHg, moderate dilatation of the ascending aorta. ) - Telemetry EKG Rhythm: Sinus Rhythm - EKG Sinus rhythms and dysrhythmias: sinus rhythm Ventricular dysrhythmias: ventricular premature com <ALEXANDER GARCIA - Last Filed: 08/17/17 19:04> Assessment and Plan Symptomatic [place] of [place], Idiopathic recommend monitor on tele overnight off amiodarone gtt Cardiac MRI as outpatient Hypertension (New diagnosis) Recent teeth extraction (on pain meds and antibiotics) History of Migraine headaches (3X daily use of Excedrin) Objective Vital Signs Temp Pulse Pulse Resp Resp BP Pulse Ox 08/17/17 14:59 70 148/99 08/17/17 14:58 70 148/99 08/17/17 10:00 98 08/17/17 03:35 98.0 F 55 L 18 151/96 98 08/17/17 00:11 97.9 F 50 L 18 132/87 93 08/17/17 00:05 55 L 08/17/17 00:03 58 L 18 98 08/17/17 00:01 18 08/16/17 22:00 18 08/16/17 21:59 71 156/93 08/16/17 21:39 97 08/16/17 20:40 99 08/16/17 19:53 99.3 F 71 20 156/93 96 - Labs and Meds Coagulation 08/17/17 Range/Units 05:43 APTT 28.9 (24.2-36.6) Sec.
--- NOTE | 2017-08-17 14:22 | Event Note ---
Date: 08/17/17 Review patient will risk, scheduled to be admitted initially to the ICU due to nonsustained V. tach episode. Went to the cardiac Lab instead and on the floor status post left heart catheterization. No respiratory events so we'll sign off at this point please reconsult if necessary
[2017-08-17] MEDS: LOPRESSOR PO SCH ×2 (14:58→22:33)
[2017-08-17] MEDS: NORVASC PO SCH (14:59)
[2017-08-17] MEDS: TYLENOL PO PRN (14:59)
[2017-08-17] MEDS: SODIUM CHLORIDE FLUSH SYRINGE 10 ML IV SCH ×2 (15:00→22:34)
[2017-08-17] MEDS: LOVENOX SUB-Q SCH (15:00)
--- NOTE | 2017-08-17 15:00 | Cardiac Catherization Report ---
CARDIAC CATHETERIZATION REFERRING PHYSICIAN: Rom Nixon MD, and Annie Garcia MD INDICATION FOR PROCEDURE: The patient is a pleasant 62-year-old -[place] gentleman, who was having runs of nonsustained VT, an abnormal stress test, referred for left heart catheterization. Risks, benefits and potential alternatives were explained at length prior to obtaining the informed consent. PROCEDURE IN DETAIL: The patient was brought to the systems testing laboratory technician in a post-absorptive state, prepped and draped in sterile fashion. James's test read as normal. A 2 mL of 2% lidocaine used to anesthetize the right wrist. A standard 6-Bolivian hydrophilic sheath was used to cannulate the right radial artery via modified Seldinger technique. All exchanges were performed to exchange a J-tipped guidewire. A JL3.5 catheter was used to engage the left main. No dampening or ventricularization. Cineangiography was performed in all projections. JR4 catheter was used to cross the aortic valve under fluoroscopic guidance. Left ventriculography was performed in 30 CIA and 30 SLOVAK projections via hand injections, catheter flushed. Manual pullback was performed with continuous pressure monitoring. Catheter was used to engage the right coronary, no dampening or vegetation. Cineangiography was performed in all projections. Next, catheter was removed from the body of wire, sheath removed. Manual pressure was used to achieve hemostasis. DATA: The patient remained in normal sinus rhythm throughout the procedure. No ventricular arrhythmias are noted. Left ventriculography revealed normal systolic performance with estimated ejection fraction of 55-60%. No evidence of aortic stenosis. I directly supervised the administration of moderate sedation with Versed and fentanyl from 11:50-12:15. CORONARY ANATOMY: This is a right dominant system. Right coronary is a moderate sized vessel, courses AV groove, distally bifurcates in the posterior and posterolateral branch, no discrete stenosis noted. Left main is a moderate sized vessel, no significant disease, bifurcates left anterior descending and left circumflex. Left circumflex is a moderate size vessel, courses AV groove, no significant disease. LAD is a large vessel, courses anterior interventricular groove, wraps around the apex, no significant disease. There is a moderate sized segment, which is intramyocardial in the mid LAD. No evidence of significant diastolic collapse. The patient tolerated the procedure well without complication. CONCLUSIONS: 1. No angiographic evidence of significant epicardial coronary disease in this right dominant system, mild mid LAD intramyocardial bridge without evidence of diastolic compromise. 2. Normal left ventricular systolic performance, estimated ejection fraction of 55-60%. 3. No evidence of aortic stenosis. 4. No evidence of ventricular arrhythmia. At this point, the patient is clinically stable. Standard radial care. Aggressive primary and secondary prevention measures. Risk factor modification. EP consult pending for recurrent nonsustained VT. Stable cardiac status. Results of procedure explained to the patient at length. All questions and concerns were addressed. JOB# [id number] MIRLANDE/JANELLE
--- NOTE | 2017-08-17 16:18 | Progress Note ---
Assessment and Plan Assessment and plan: Recurrent nonsustained V. tach -Status post left cardiac catheterization which showed normal coronaries -Status post amiodarone drip -Continue oral coreg -ECHO showed EF 55-60% -EP evaluation pending HTN -Controlled on meds Disposition: Discharge planning after EP evaluation 25 minutes spent coordinating care History Interval history: Patient seen and examined today. He denied chest pain or shortness of breath. Hospitalist Physical - Constitutional Vitals: Temp Pulse Resp BP Pulse Ox 98.0 F 70 18 148/99 98 08/17/17 03:35 08/17/17 14:59 08/17/17 03:35 08/17/17 14:59 08/17/17 10:00 General appearance: Present: no acute distress - EENT Eyes: Present: PERRL, EOM intact ENT: hearing intact, clear oral mucosa - Neck Neck: Present: supple - Respiratory Respiratory effort: normal Respiratory: bilateral: CTA - Cardiovascular Rhythm: regular Heart Sounds: Present: S1 & S2 - Extremities Extremities: No edema - Abdominal General gastrointestinal: soft, non-tender, normal bowel sounds - Neurologic Neurologic: CNII-XII intact Results - Labs CBC & Chem 7: 08/16/17 06:49 08/16/17 03:53 Labs: Laboratory Last Values WBC 8.1 K/mm3 (4.5-11.0) 08/16/17 06:49 RBC 4.57 M/mm3 (3.65-5.03) 08/16/17 06:49 Hgb 12.9 gm/dl (11.8-15.2) 08/16/17 06:49 Hct 38.8 % (35.5-45.6) 08/16/17 06:49 MCV 85 fl (84-94) 08/16/17 06:49 MCH 28 pg (28-32) 08/16/17 06:49 MCHC 33 % (32-34) 08/16/17 06:49 RDW 13.6 % (13.2-15.2) 08/16/17 06:49 Plt Count 202 K/mm3 (140-440) 08/16/17 06:49 Lymph % (Auto) 38.6 % (13.4-35.0) H 08/16/17 06:49 [facility] % (Auto) 10.6 % (0.0-7.3) H 08/16/17 06:49 Eos % (Auto) 3.9 % (0.0-4.3) 08/16/17 06:49 Baso % (Auto) 0.6 % (0.0-1.8) 08/16/17 06:49 Lymph # 3.1 K/mm3 (1.2-5.4) 08/16/17 06:49 [facility] # 0.9 K/mm3 (0.0-0.8) H 08/16/17 06:49 Eos # 0.3 K/mm3 (0.0-0.4) 08/16/17 06:49 Baso # 0.0 K/mm3 (0.0-0.1) 08/16/17 06:49 Add Manual Diff Complete 08/15/17 10:33 Seg Neutrophils % 46.3 % (40.0-70.0) 08/16/17 06:49 Seg Neutrophils # 3.7 K/mm3 (1.8-7.7) 08/16/17 06:49 PT 13.2 Sec. (12.2-14.9) 08/15/17 10:33 INR 0.95 (0.87-1.13) 08/15/17 10:33 APTT 28.9 Sec. (24.2-36.6) 08/17/17 05:43 Sodium 140 mmol/L (137-145) 08/16/17 03:53 Potassium 4.4 mmol/L (3.6-5.0) 08/16/17 03:53 Chloride 100.6 mmol/L (98-107) 08/16/17 03:53 Carbon Dioxide 29 mmol/L (22-30) 08/16/17 03:53 Anion Gap 15 mmol/L 08/16/17 03:53 BUN 15 mg/dL (9-20) 08/16/17 03:53 Creatinine 1.2 mg/dL (0.8-1.5) 08/16/17 03:53 Estimated GFR > 60 ml/min 08/16/17 03:53 BUN/Creatinine Ratio 13 % 08/16/17 03:53 Glucose 76 mg/dL (75-100) 08/16/17 03:53 POC Glucose 97 (70-105) 08/17/17 06:16 Calcium 8.4 mg/dL (8.4-10.2) 08/16/17 03:53 Magnesium 2.30 mg/dL (1.7-2.3) 08/15/17 10:33 Total Creatine Kinase 77 units/L (55-170) 08/16/17 06:49 CK-MB (CK-2) < 1.0 ng/mL (0.0-4.0) 08/16/17 06:49 CK-MB (CK-2) Rel Index 1.2 (0-4) 08/16/17 06:49 Troponin T < 0.010 ng/mL (0.00-0.029) 08/16/17 06:49
[2017-08-17] MEDS: PERCOCET 5/325 PO PRN (20:42)
[2017-08-17] MEDS ORDERED: DULCOLAX PO PRN (20:57)
[2017-08-17] MEDS ORDERED: AMBIEN PO PRN (20:57)
[2017-08-17] MEDS: MILK OF MAGNESIA PO PRN (22:31)
[2017-08-18] MEDS: NORVASC PO SCH (11:17)
[2017-08-18] MEDS: LOVENOX SUB-Q SCH (11:17)
[2017-08-18] MEDS: LOPRESSOR PO SCH (11:18)
[2017-08-18] MEDS: SODIUM CHLORIDE FLUSH SYRINGE 10 ML IV SCH (11:19)
[2017-08-18] MEDS: TYLENOL PO PRN (11:25)
[2017-08-18] MEDS: MILK OF MAGNESIA PO PRN (11:25)
--- NOTE | 2017-08-18 11:37 | Progress Note ---
Assessment and Plan Symptomatic Salvos of VT, Idiopathic No VT on tele overnight off amiodarone gtt Cardiac MRI as outpatient recommend avoid polypharmacy Follow up with Dr. Jina Garcia [phone] Hypertension (New diagnosis) controlled Continue low dose Beta alyssa and amlodipine Recent teeth extraction (on pain meds and antibiotics) History of Migraine headaches (3X daily use of Excedrin) discussed with patient importance of monitoring caffeine intake Subjective Date of service: 08/18/17 Principal diagnosis: NSVT Interval history: Patient is sitting up in bed without any complaints of lightheadedness or dizziness. He does complain of a migraine headache this morning. Telemetry monitoring overnight did not reveal any episodes since discontinuing amiodarone drip. Objective Vital Signs Temp Pulse Resp Resp BP BP Pulse Ox 08/18/17 11:25 17 08/18/17 11:18 70 144/96 08/18/17 11:17 70 144/96 08/18/17 08:22 59 L 144/96 96 08/18/17 04:20 97.9 F 53 L 18 130/86 96 08/18/17 00:26 98.2 F 53 L 52 H 124/84 95 08/17/17 23:44 54 L 08/17/17 22:33 50 L 126/70 08/17/17 22:00 98 08/17/17 21:42 18 08/17/17 21:13 98.3 F 58 L 20 129/89 97 08/17/17 21:03 18 98 08/17/17 20:50 18 08/17/17 20:42 20 08/17/17 15:55 97.3 F L 59 L 18 147/88 97 08/17/17 14:59 70 148/99 08/17/17 14:58 70 148/99 08/17/17 13:58 104/65 08/17/17 12:45 58 L 137/83 97 - Physical Examination General: No Apparent Distress HEENT: Positive: EOMI, Normocephaly, Mucus Membranes Moist Neck: Positive: neck supple, trachea midline Cardiac: Positive: Reg Rate and Rhythm Lungs: Positive: Normal Exam Neuro: Positive: Grossly Intact Abdomen: Positive: Soft, Active Bowel Sounds. Negative: Tender Skin: Positive: Clear. Negative: Rash Musculoskeletal: Normal Range of Motion Extremities: Present: normal. Absent: edema - Imaging and Cardiology EKG: image reviewed Echo: report reviewed (EF 55-60%, RV mildly dilated, RA mildly dilated, mild TR , mild pulm HTN with RVSP 34mmHg, moderate dilatation of the ascending aorta. ) - EKG Sinus rhythms and dysrhythmias: sinus rhythm Ventricular dysrhythmias: ventricular premature com
[2017-08-18 13:36] VITALS: BP 140/85
--- NOTE | 2017-08-18 17:37 | Discharge Summary ---
Providers - Providers Date of Admission: 08/15/17 23:31 Date of discharge: 08/18/17 Attending physician: DAWSON TABARES MD 08/15/17 22:30 Consult to Physician [CONS] Urgent Comment: Consulting Provider: RANJITH MURRY Physician Instructions: Reason For Exam: unsustained V. tach 08/17/17 12:19 Consult to Cardiac Rehabilitation [CONS] Routine Reason For Exam: Cardiac Rehab Evaluation Primary care physician: RIPPLER Hospitalization Reason for admission: nonsustained V. tach, dizziness Condition: Stable Pertinent studies: cardiac cath : clean coronaries Hospital course: History of present illness: 62-year-old man with no medical history was admitted for evaluation of his bigeminy and discharged yesterday. Patient was instructed to take Lopressor 12.5 twice a day. He took the morning dose, she did not take the evening dose because his pulse was between 47 to low 50s. Stated that this evening he started experiencing fluttering and skipped beats A's chest. Patient had episodes of nonsustained V. tach in the emergency room and was started on amiodarone drip. patient was admittted to the floor and NSVT was controlled and patient was in SR. Cardiac cath was negative for obstructive disease. Cardiology consult appreciated. Cardiology recommend O/P MRI of the heart. patient will follow with Dr aGrcia in the office. patient discharged home with metoprolol and amlodipine. patient was hemodynamically stable at the time of discharge. Disposition: - TO HOME OR SELFCARE Time spent for discharge: 32 minutes - Discharge Diagnoses (1) Bigeminy Status: Acute (2) Hypertension Status: Acute (3) NSVT (nonsustained ventricular tachycardia) Status: Acute (4) Palpitations Status: Acute (5) Arrhythmia Status: Acute Qualifiers: Arrhythmia type: unspecified cardiac arrhythmia Qualified Code(s): I49.9 - Cardiac arrhythmia, unspecified Core Measure Documentation - Palliative Care Palliative Care/ Comfort Measures: Not Applicable - Core Measures Any of the following diagnoses?: none Exam - Physical Exam Narrative exam: Not in cardiopulmonary distress. The patient appeared well nourished and normally developed. Vital signs as documented. Head exam is unremarkable. No scleral icterus . Neck is without jugular venous distension, thyromegaly, or carotid bruits. Lungs are clear to auscultation. Cardiac exam reveals regular rate and Rhythm. First and second heart sounds normal. No murmurs, rubs or gallops. Abdominal exam reveals normal bowel sounds, no masses, no organomegaly and no aortic enlargement. Extremities are nonedematous and both femoral and pedal pulses are normal. [employer] SALES SUPERVISOR: Alert and oriented 3. No focal weakness. - Constitutional Vitals: Temp Pulse Resp BP Pulse Ox 98.0 F 71 18 140/85 98 08/18/17 13:19 08/18/17 13:19 08/18/17 13:19 08/18/17 13:19 08/18/17 13:19 Plan Activity: no restrictions Weight Bearing Status: Full Weight Bearing Diet: low cholesterol, low salt Follow up with: ALEXANDER GARCIA MD [Staff Physician] - 7 Days (09/02/2017 @ 11:00AM) PRIMARY CAREMD [Primary Care Provider] - 3-5 Days
== END 2017-08-18 19:15 | disposition home or self-care (01) | DRG 287 ==
LOC: ED 21:47 → CC1 23:31 → 4A 08-16 10:50
PROVIDERS: ADMIT Internal Medicine; ATTEND Internal Medicine
PROC: 4A023N7 Measurement of Cardiac Sampling and Pressure, Left Heart, Percutaneous Approach (ICD-10-PCS; principal; 2017-08-17)
PROC: B2151ZZ Fluoroscopy of Left Heart using Low Osmolar Contrast (ICD-10-PCS; 2017-08-17)
PROC: B2111ZZ Fluoroscopy of Multiple Coronary Arteries using Low Osmolar Contrast (ICD-10-PCS; 2017-08-17)
DX: I47.2 Ventricular tachycardia (principal); I49.9 Cardiac arrhythmia, unspecified; R00.8 Other abnormalities of heart beat; I49.3 Ventricular premature depolarization; I10 Essential (primary) hypertension; G43.909 Migraine, unspecified, not intractable, without status migrainosus; Z79.82 Long term (current) use of aspirin; Z79.899 Other long term (current) drug therapy; Z82.49 Family history of ischemic heart disease and other diseases of the circulatory system
CPT/HCPCS: 36415; 80048; 82550; 82553; 82962; 83735; 84484; 85025; 85610; 85730; 93005; 93010; 93458; 96372; 96374; 96376; C1894; J0282; J1644; J1650; J2250; J2405; J2785; J3010; J7040; J7060; Q9967